=== PATIENT | female | born 1990 | race Caucasian/White ===

== ENCOUNTER → 2020-08-20 | Emergency (ER) | payer OTHER ==
[~2020-08-20] VITALS: Ht 160 cm; Wt 108.0 kg
[2020-08-20 17:36] VITALS: BP 131/83
--- NOTE | 2020-08-21 10:00 | EKG ---
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
== END ==
LOC: M.ERS 17:32
DX: R07.89 Other chest pain (principal); F41.9 Anxiety disorder, unspecified; Z88.6 Allergy status to analgesic agent; Z88.5 Allergy status to narcotic agent